=== PATIENT | female | born 1960 | race Caucasian/White ===

== ENCOUNTER 2022-01-02 11:55 | Outpatient (REF) | payer BC, SELFPAY ==
[2022-01-02 13:41] LABS: Blood Urea Nitrogen 9 mg/dL (9-16); Estimated Glomerular Filt Rate > 60
== END 2022-01-02 11:56 | disposition home or self-care (01) ==
LOC: HO.LAB 11:55
PROVIDERS: PCP Internal Medicine; Visit Provider Neurological Surgery
DX: I72.9 Aneurysm of unspecified site (principal)
CPT/HCPCS: 36415; 82565; 84520

== ENCOUNTER 2022-01-06 09:57 | Outpatient (REF) | payer BC, SELFPAY ==
--- NOTE | ~2022-01-06 | XR_ITS ---
EXAMINATION: XR CHEST CLINICAL INFORMATION: Shortness of breath and cough. COMPARISON: Previous chest x-ray most recent October 2018 and abdominal MRI August 2007. TECHNIQUE: 2 views of the chest were obtained. FINDINGS: The heart does not appear enlarged. There is change in contour of the posterior mediastinal structures, either the descending thoracic aorta or esophagus. Hilar and mediastinal contours are otherwise unremarkable. The lungs are clear. There is no pleural effusion or pneumothorax. There are degenerative changes of the spine. XR/XR chest 2V IMPRESSION: Change in contour of the mediastinum either corresponding to the descending thoracic aorta or esophagus.
[2022-01-06 10:13] LABS: MANUAL DIFF FLAG NO
[2022-01-06 10:32] LABS: Basophils Percent Auto 0.2 % (0-2); Eosinophils Percent Auto 0.1 % (0-4); Hematocrit 40.6 % (37.0-47.0); Hemoglobin 13.8 g/dl (12.0-16.0); Imm Gran Abs Auto 0.04 X10*3/uL (0.00-0.03); Imm Gran Pct Auto 0.3 % (0.0-0.4); Lymphocytes Absolute Auto 3.2 X10*3/uL (1.2-4.9); Lymphocytes Percent Auto 25.8 % (20-40); Mean Corpuscular Hemoglobin 29.6 pg (27.0-33.0); Mean Corpuscular Volume 86.9 fL (80.0-98.0); Mean Platelet Volume 8.9 fL (9.4-12.3); Monocytes Absolute Auto 1.1 X10*3/uL (0.1-1.2); Monocytes Percent Auto 8.6 % (2-11); Neutrophils Absolute Auto 8.1 x10*3/uL (2.0-8.3); Platelet Count 404 X10*3/uL (160-400); Red Blood Count 4.67 X10*6/uL (4.20-5.50); Red Cell Distribution Width 13.3 % (11.0-16.0); White Blood Count 12.4 X10*3/uL (4.8-10.8)
[2022-01-06 10:40] LABS: D Dimer High Sensitivity 327 NG/ML
[2022-01-06 10:48] LABS: Appearance Urine CLOUDY; Color Urine YELLOW; Glucose Urine UA NEG (NEG); Leukocyte Esterase Urine NEG (NEG); Nitrite Urine NEG (NEG); PH 6.5 (5.0-8.0); UACC Culture Trigger NO; Urine Blood 3+ (NEG); Urine Ketones 40 MG/DL (NEG); Urine Protein 2+ MG/DL (NEG-TRACE)
[2022-01-06 10:57] LABS: Mucus Urine TRACE /LPF; Squamous Epithelial Cell Urine TRACE /LPF
[2022-01-06 11:09] LABS: Alanine Aminotransferase 17 U/L (0-31); Alkaline Phosphatase 117 U/L (39-117); Anion Gap 16 (12-20); Aspartate Amino Transferase 17 U/L (5-31); Bilirubin Total 0.4 mg/dL (0.0-1.0); Blood Urea Nitrogen 13 mg/dL (9-16); C Reactive Protein 9.24 mg/dL (< or = 0.50); Calcium 11.1 mg/dL (8.4-10.2); Carbon Dioxide 22 mmol/L (22-29); Chloride 105 mmol/L (96-108); Estimated Glomerular Filt Rate > 60; Glucose Random 117 mg/dL (60-115); Potassium 3.9 mmol/L (3.3-5.1); Sodium 139 mmol/L (135-145); Total Protein 8.3 g/dL (6.5-8.0)
[2022-01-06 12:32] LABS: Influenza A PCR NEGATIVE (Negative); Influenza B PCR NEGATIVE (Negative); Resp Syncy Virus RNA Qual PCR POSITIVE (Negative); SARS COV2 PCR INHOUSE NEGATIVE (Negative)
== END 2022-01-06 09:58 | disposition home or self-care (01) ==
LOC: HO.XRAY 09:57
PROVIDERS: PCP Internal Medicine; Visit Provider Internal Medicine
DX: R06.02 Shortness of breath (principal); R05.9 Cough, unspecified; Z20.822 Contact with and (suspected) exposure to COVID-19
CPT/HCPCS: 0241U; 36415; 71046; 80053; 81001; 85025; 85379; 86140; 87086

== ENCOUNTER 2022-01-08 09:35 | Outpatient (REF) | payer BC, SELFPAY ==
--- NOTE | ~2022-01-08 | CT_ITS ---
CT ANGIOGRAM BRAIN, HEAD CLINICAL INFORMATION: Follow-up aneurysm. COMPARISON: CTA head 03/10/2019. TECHNIQUE: Test bolus sequences followed by intravenous administration 75 mL of Omnipaque 350 intravenous contrast. Helical imaging was performed in the axial plane from the skull base to the vertex. Delayed postcontrast imaging of the head was also performed. The data was processed at the cytometry technologist workstation for generation of MIP sequences. Three-dimensional volume rendered reformatted images were also generated at an offline 3-D workstation. The degree of stenosis determined by NASCET criteria. This CT examination was performed using dose optimization techniques as appropriate, variously including the following: *Automated exposure control *Adjustment of mA and/or kV according to patient size (this includes techniques or standardized protocols for targeted exams where dose is matched to indication/reason for exam; i.e. extremities or head) *Use of iterative reconstruction technique FINDINGS: There is no pathologic enhancement intracranially. Stable 0.7 cm calcification along the left tentorial leaflet that may reflect focal dural ossification versus a densely calcified meningioma. There is no intracranial hemorrhage, hydrocephalus, extra-axial surface collection, midline shift, or other herniation pattern. Cain to white matter differentiation is diffusely maintained without evidence of an evolved acute territorial infarct. The basilar cisterns are preserved. No significant soft tissue abnormality. No acute osseous abnormality. Large fluid level within the left maxillary sinus, moderate fluid level within the right maxillary sinus, moderate mucosal thickening within the right sphenoid sinus and throughout the ethmoid air cells bilaterally. 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 There are also stable 1.5 mm infundibulum versus aneurysm S of the posterior communicating artery origins bilaterally. No new aneurysms. Atherosclerotic calcification results in a stable moderate stenosis of the intradural right vertebral artery. Atherosclerotic calcification throughout the carotid siphons bilaterally without significant stenosis. 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 There are also stable 1.5 mm infundibulum versus aneurysm S of the posterior communicating artery origins bilaterally. - Atherosclerotic calcification results in a stable moderate stenosis of the intradural right vertebral artery. - Sinus disease with fluid levels that can be correlated for clinical signs of acute sinusitis. - Stable 0.7 cm calcification along the left tentorial leaflet that may reflect focal dural ossification versus a densely calcified meningioma.
[2022-01-08 11:34] LABS: Appearance Urine CLEAR; Color Urine YELLOW; Glucose Urine UA NEG (NEG); Leukocyte Esterase Urine NEG (NEG); Nitrite Urine NEG (NEG); PH 5.5 (5.0-8.0); Specific Gravity - Urine <= 1.005 (1.005-1.025); Urine Blood NEG (NEG); Urine Ketones NEG (NEG); Urine Protein TRACE MG/DL (NEG-TRACE)
[2022-01-08 12:00] LABS: Urine Cytology See Pathology rpt
== END 2022-01-08 09:36 | disposition home or self-care (01) ==
LOC: HO.CT 09:35
PROVIDERS: Absent Provider Internal Medicine; PCP Internal Medicine; Visit Provider Neurological Surgery
DX: I67.1 Cerebral aneurysm, nonruptured (principal); I67.2 Cerebral atherosclerosis; R30.0 Dysuria; R31.9 Hematuria, unspecified
CPT/HCPCS: 70496; 81003; 87086; 88112

== ENCOUNTER 2023-07-30 09:04 | Outpatient (REF) | payer BC, SELFPAY ==
--- NOTE | ~2023-07-30 | XR_ITS ---
EXAMINATION: XR ANKLE, LEFT CLINICAL INFORMATION: Left ankle pain COMPARISON: None available. TECHNIQUE: AP, lateral, and mortise views of the left ankle. FINDINGS: BONES: Bony structures are intact. There is no focal bone destruction or periosteal reaction seen. JOINTS: Alignment of joints is normal. SOFT TISSUE: Soft tissue is normal. No radiopaque foreign body or abnormal air collection is seen. XR/XR ankle LT min 3V IMPRESSION: 1. Normal x-rays of left ankle. No fracture or dislocation or signs of osteomyelitis are found. Some fractures could be difficult to visualize on plain x-rays, especially in the osteopenic and relatively old patients. If there are significant clinical suspicion or symptoms of fracture, further evaluation with CT or MRI scan should be considered.
--- NOTE | ~2023-07-30 | XR_ITS ---
EXAMINATION: XR KNEE, LEFT CLINICAL INFORMATION: Left knee pain COMPARISON: None available. TECHNIQUE: Four views of the left knee. FINDINGS: BONES: Bony structures are intact. There is no focal bone destruction or periosteal reaction seen. JOINTS: Alignment of joints is normal. There is mild asymmetric decrease in medial compartment and lateral compartment left knee joint space. Small osteophyte is seen in the left medial tibial plateau. SOFT TISSUE: Soft tissue is normal. No radiopaque foreign body or abnormal air collection is seen. XR/XR knee LT 4V IMPRESSION: 1. Mild left tibiofemoral joint osteoarthritis is present. 2. No fracture or dislocation or signs of osteomyelitis are found. Some fractures could be difficult to visualize on plain x-rays, especially in the osteopenic and relatively old patients. If there are significant clinical suspicion or symptoms of fracture, further evaluation with CT or MRI scan should be considered.
--- NOTE | ~2023-07-30 | XR_ITS ---
EXAMINATION: XR KNEE, RIGHT CLINICAL INFORMATION: Right knee pain COMPARISON: None available. TECHNIQUE: Four views of the right knee. FINDINGS: BONES: Bony structures are intact. There is no focal bone destruction or periosteal reaction seen. JOINTS: Alignment of joints is normal. There is marked decrease in medial compartment right tibiofemoral joint space. SOFT TISSUE: Right suprapatellar fat pad shows hazy increase in density. No radiopaque foreign body or abnormal air collection is seen. XR/XR knee RT 4V IMPRESSION: 1. Advanced medial compartment right tibiofemoral joint osteoarthritis. 2. Right knee effusion is present. 3. No fracture or dislocation or signs of osteomyelitis are found. Some fractures could be difficult to visualize on plain x-rays, especially in the osteopenic and relatively old patients. If there are significant clinical suspicion or symptoms of fracture, further evaluation with CT or MRI scan should be considered.
[2023-07-30 09:20] LABS: MANUAL DIFF FLAG NO
[2023-07-30 09:41] LABS: Basophils Percent Auto 0.3 % (0-2); Eosinophils Absolute Auto 0.1 X10*3/uL (0.0-0.4); Eosinophils Percent Auto 0.6 % (0-4); Hematocrit 42.5 % (37.0-47.0); Hemoglobin 14.1 g/dl (12.0-16.0); Imm Gran Abs Auto 0.03 X10*3/uL (0.00-0.03); Imm Gran Pct Auto 0.3 % (0.0-0.4); Lymphocytes Absolute Auto 2.3 X10*3/uL (1.2-4.9); Lymphocytes Percent Auto 25.8 % (20-40); Mean Corpuscular HGB Conc 33.2 g/dl (31.0-35.0); Mean Corpuscular Hemoglobin 29.7 pg (27.0-33.0); Mean Corpuscular Volume 89.7 fL (80.0-98.0); Mean Platelet Volume 8.9 fL (9.4-12.3); Monocytes Absolute Auto 0.6 X10*3/uL (0.1-1.2); Platelet Count 342 X10*3/uL (160-400); Red Blood Count 4.74 X10*6/uL (4.20-5.50); Red Cell Distribution Width 13.7 % (11.0-16.0)
[2023-07-30 10:14] LABS: Alanine Aminotransferase 22 U/L (0-31); Albumin Level 4.9 g/dL (3.5-5.0); Alkaline Phosphatase 88 U/L (39-117); Anion Gap 16 (12-20); Aspartate Amino Transferase 19 U/L (5-31); Bilirubin Total 0.4 mg/dL (0.0-1.0); Blood Urea Nitrogen 15 mg/dL (9-16); Calcium 10.3 mg/dL (8.4-10.2); Carbon Dioxide 23 mmol/L (22-29); Chloride 104 mmol/L (96-108); Cholesterol 345 mg/dL (<200); Estimated Glomerular Filt Rate > 60; Glucose Fasting 111 mg/dL (60-99); HDL Cholesterol 49 mg/dL (>40); LDL Cholesterol Calculated 221 mg/dL (<100); Potassium 4.3 mmol/L (3.3-5.1); Sodium 139 mmol/L (135-145); Total Protein 8.1 g/dL (6.5-8.0); Triglycerides 378 mg/dL (<150)
== END 2023-07-30 09:05 | disposition home or self-care (01) ==
LOC: HO.LAB 09:04
PROVIDERS: PCP Internal Medicine; Visit Provider Internal Medicine
DX: E78.00 Pure hypercholesterolemia, unspecified (principal); M25.562 Pain in left knee; M25.561 Pain in right knee; M25.572 Pain in left ankle and joints of left foot
CPT/HCPCS: 36415; 73564; 73610; 80053; 80061; 85025

== ENCOUNTER 2024-03-16 12:56 | Outpatient (REF) | payer BC, SELFPAY ==
--- NOTE | ~2024-03-16 | XR_ITS ---
EXAMINATION: XR CERVICAL SPINE CLINICAL INFORMATION: Neck pain COMPARISON: None available. TECHNIQUE: 6 views of the cervical spine, including bilateral oblique views, were obtained. FINDINGS: The bones are diffusely demineralized. No fracture. Prevertebral soft tissues are within normal limits. There is marked disc space narrowing at C5-C6 and C6-C7 with marginal osteophytes. There is mild retrolisthesis of C5 with respect to C6. There is straightening of the usual cervical lordosis which can be seen with muscle spasm or patient positioning. The neural foramina are patent. XR/XR cervical spine 5V IMPRESSION: 1. Degenerative disc disease at C5-C6 and C6-C7. 2. Straightening of the usual cervical lordosis which can be seen with muscle spasm or patient positioning.
--- NOTE | ~2024-03-16 | XR_ITS ---
EXAMINATION: XR CHEST CLINICAL INFORMATION: Neck pain COMPARISON: Chest 01/06/2022 TECHNIQUE: 2 views of the chest were obtained. FINDINGS: No significant abnormality is noted involving the heart, lungs, mediastinum, bony thorax or soft tissues. A small to moderate size hernia is noted. XR/XR chest 2V IMPRESSION: No acute disease.
[2024-03-16 13:09] LABS: MANUAL DIFF FLAG NO
[2024-03-16 14:01] LABS: Basophils Percent Auto 0.4 % (0-2); Eosinophils Absolute Auto 0.1 X10*3/uL (0.0-0.4); Eosinophils Percent Auto 0.9 % (0-4); Hematocrit 40.5 % (37.0-47.0); Hemoglobin 13.3 g/dl (12.0-16.0); Imm Gran Abs Auto 0.01 X10*3/uL (0.00-0.03); Imm Gran Pct Auto 0.1 % (0.0-0.4); Lymphocytes Absolute Auto 3.2 X10*3/uL (1.2-4.9); Lymphocytes Percent Auto 41.8 % (20-40); Mean Corpuscular HGB Conc 32.8 g/dl (31.0-35.0); Mean Corpuscular Hemoglobin 30.3 pg (27.0-33.0); Mean Corpuscular Volume 92.3 fL (80.0-98.0); Monocytes Absolute Auto 0.6 X10*3/uL (0.1-1.2); Monocytes Percent Auto 8.2 % (2-11); Neutrophils Absolute Auto 3.7 x10*3/uL (2.0-8.3); Neutrophils Percent Auto 48.6 % (45-73); Platelet Count 351 X10*3/uL (160-400); Red Blood Count 4.39 X10*6/uL (4.20-5.50); Red Cell Distribution Width 14.1 % (11.0-16.0); White Blood Count 7.7 X10*3/uL (4.8-10.8)
[2024-03-16 15:09] LABS: Alanine Aminotransferase 21 U/L (0-31); Albumin Level 4.9 g/dL (3.5-5.0); Alkaline Phosphatase 91 U/L (39-117); Anion Gap 12 (12-20); Aspartate Amino Transferase 22 U/L (5-31); Bilirubin Total 0.5 mg/dL (0.0-1.0); Blood Urea Nitrogen 10 mg/dL (9-16); C Reactive Protein 0.24 mg/dL (< or = 0.50); Calcium 10.5 mg/dL (8.4-10.2); Carbon Dioxide 28 mmol/L (22-29); Chloride 107 mmol/L (96-108); Estimated Glomerular Filt Rate > 60; Glucose Random 92 mg/dL (60-115); Potassium 4.4 mmol/L (3.3-5.1); Sodium 143 mmol/L (135-145)
== END 2024-03-16 12:57 | disposition home or self-care (01) ==
LOC: HO.LAB 12:56
PROVIDERS: PCP Internal Medicine; Visit Provider Internal Medicine
DX: M54.9 Dorsalgia, unspecified (principal); Z87.891 Personal history of nicotine dependence; R52 Pain, unspecified
CPT/HCPCS: 36415; 71046; 72050; 80053; 82550; 85025; 86140

== ENCOUNTER 2025-03-16 14:49 | Outpatient (AMB) | payer BC, SELFPAY ==
--- OUTSIDE RECORDS SUMMARY | 2025-03-16 14:51 | XMS_ITS | Clinical Summary ---
Author Organization [facility] it Address [id number] [place] [id number] Care Team Providers Care Field Tech Name Role Phone Nick White MD Primary Care Provider [phone] Social History Tobacco Use Types Packs/Day Years Used Date Smoking Tobacco: Never Assessed Comments Unknown Sex and Gender Information Value Date Recorded Sex Assigned at Not on file Legal Sex Female 7:21 AM EST Gender Identity Not on file Sexual Orientation Not on file Plan of Treatment Health Maintenance Due Date Last Done Comments Breast Cancer Screening 1960 DTaP,Tdap,and Td Vaccines (1 - Tdap) 1978 Pneumococcal Vaccine: 50+ Ye ars (1 of 1 - PCV) 2009 Zoster Vaccines (1 of 2) 2009 COVID-19 Vaccine ( - 2023-2 5 season) 2024 Influenza Vaccine (Season Ended) 2025 RSV Immunization Adult Patie nts (1 - 1-dose 75+ series) 2034 HIB Vaccines Aged Out No longer eligi ble based on patient's age to complete this topic HPV Vaccines Aged Out No longer eligi ble based on patient's age to complete this topic Hepatitis A Vaccines Aged Out No long er eligible based on patient's age to complete this topic Hepatitis B Vaccines Aged Out No long er eligible based on patient's age to complete this topic IPV Vaccines Aged Out No longer eligi ble based on patient's age to complete this topic MMR Vaccines Aged Out No longer eligi ble based on patient's age to complete this topic Meningococcal ACWY Vaccine Aged Out N o longer eligible based on patient's age to complete this topic Meningococcal B Vaccine Aged Out No l onger eligible based on patient's age to complete this topic RSV Immunization Patients Un chano 20 months Aged Out No longer eligible b ased on patient's age to complete this topic Varicella Vaccines Aged Out No longer eligible based on patient's age to complete this topic Care Teams Field Tech Relationship Specialty Start Date End Date Nick White MD [address] [place] [address] Dr Urbano MA PCP - General Internal Medicine 01/16/22
--- NOTE | 2025-03-16 14:57 | MHC.PC.OV ---
Vital Signs 03/16/25 15:16 Height 5 ft 3 in Weight 148 lb BMI 26.2 BP 128/72 Blood Pressure Location Rt brachial Position Sitting Pulse 71 Pulse Source Pulse Oximeter Temp 97.5 F Temp Source Axillary Pulse Oximetry (%) 98 Oxygen Delivery Method Room Air Intake Visit Reasons: Routine - see comments Production Sound Mixer Required: No Accompanied by: Self / Same As Patient Allergies codeine [Codeine] Allergy (Mild, Verified 03/16/25 14:58) HIVES diphenhydramine [From Benadryl] Allergy (Mild, Verified 03/16/25 14:58) HIVES Tobacco use date assessed: 03/16/25 Fall risk assessment: 1 Fall in past year Last assessed Fall Risk: 03/16/25 Dental Screening Dental Screen Date: 03/16/25 Did you have a dental visit in the last 12 months?: No Did you have a dental problem in the last 6 months where you did not have access to dental care?: No HPI HPI Comments History of Present Illness Details The patient is a 65 year old female with a past medical history of anxiety, MDD, hyperlipidemia, COPD, hypertension, right knee pain presenting for follow up CV: on atorvastatin daily BH: on celexa 20mg daily. She has been out of the medication for a couple weeks. She has been on this medication for years. Says it is not adequately controlling her depression anymore. Frequently tearful for no reason/ford. She has no thoughts of self harm. Mammo: ordered Colonoscopy: declines colonoscopy. she is agreeable for cologuard ROS see HPI PHYSICAL EXAM: GENERAL: Alert and oriented x 3. NAD EYES: EOMI. Anicteric. HENT: Moist mucous membranes. No scleral icterus. No cervical lymphadenopathy. LUNGS: Clear to auscultation bilaterally. CARDIOVASCULAR: Regular rate and rhythm. No murmur. No JVD. ABDOMEN: Soft, non-tender +bs EXTREMITIES: No edema. Non-tender. SKIN: No rashes or lesions. Warm. NEUROLOGIC: No focal neurological deficits. CN II-XII grossly intact PSYCHIATRIC: Cooperative. Appropriate mood and affect [facility] Family History Mother No problems noted. Father No problems noted. Social History Housing: House Patient Tobacco Use Status: Former Tobacco user e-Cigarette/Vaping Use: Former Use service: No Current occupational status: retired Cognitive needs: No Hearing needs: No Vision needs: Yes (rx glasses) Questionnaire PHQ-9 Over the last 2 weeks, how often have you been bothered by any of the following problems? 1. Little interest or pleasure in doing things: not at all 2. Feeling down, depressed, or hopeless: nearly every day 3. Trouble falling or staying asleep, or sleeping too much: nearly every day 4. Feeling tired or having little energy: several days 5. Poor appetite or overeating: several days 6. Feeling bad about yourself - or that you are a failure or have let yourself or your family down: not at all 7. Trouble concentrating on things, such as reading the newspaper or watching television: not at all 8. Moving or speaking so slowly that other people could have noticed. Or the opposite - being so fidgety or restless that you have been moving around a lot more than usual: not at all 9. Thoughts that you would be better off or of hurting yourself in some way: not at all Total score: 8 Depression Screening Interpretation: Positive Depression Screening Follow-up: New Medication prescribed Depression Screening Done: Yes 48581 - PHQ-9 Billing: Yes Source: Developed by Drs. Liborio Hahn, Raquel Bowers, Bradley Griffith and colleagues, with an educational radha from [employer]. Thrive Questionnaire Date Thrive assessed: 03/16/25 I am a: Patient Within the past 12 months, did the food you bought not last and you didn't have the money to get more?: Never true Within the past 12 months, did you worry whether your food would run out before you got money to buy more?: Never true Do you have trouble paying for medicines?: No Do you have trouble getting transportation to medical appointments?: No Do you have trouble paying your heating and electricity bill?: No Do you have trouble taking care of your child, family member or friend?: No Do you have trouble with day-to-day activities such as bathing, preparing meals, shopping, managing finances, etc.?: No Are you currently unemployed and looking for a job?: No Are you interested in more education?: No THRIVE Score: 0 AUDIT C Alcohol Use Questionnaire (AUDIT-C) 1. How often do you have a drink containing alcohol?: Never 3. How often do you have six or more drinks on one occasion?: Never Total Score: 0 LUNA-7 AMB Questionnaire LUNA-7 Date LUNA - 7 assessed: 03/16/25 Feeling nervous, anxious, or on edge: 3 = Nearly every day Not being able to stop or control worryin = Not at all Worrying too much about different things: 0 = Not at all Trouble relaxin = Not at all Being so restless that it is hard to sit still: 0 = Not at all Becoming easily annoyed or irritable: 0 = Not at all Feeling afraid as if something awful might happen: 0 = Not at all Total LUNA-7 score (0-4 normal; 5-9 mild; 10-14 moderate; 15-21 severe): 3 Source: Developed by Drs. Liborio Hahn, Raquel Bowers, Bradley Griffith and colleagues, with an educational radha from [employer]. Physical exam (Primary Care) Vital Signs: Last Vital Signs Temp 97.5 F 03/16/25 15:16 Pulse 71 03/16/25 15:16 BP 128/72 03/16/25 15:16 Pulse Ox 98 03/16/25 15:16 Oxygen Delivery Method Room Air 03/16/25 15:16 BMI result Body Mass Index 26.2 Tobacco/Smoking Status: Tobacco use Status Tobacco use date assessed 03/16/25 03/16/25 15:00 Patient Tobacco Use Status Former Tobacco user 03/16/25 15:22 e-Cigarette/Vaping Use Former Use 03/16/25 15:22 PHQ-9: PHQ-9 Score PHQ-9: Total score 8 03/18/25 12:37 Depression Screening Interpretation: Positive Depression Screening Follow-up: New Medication prescribed Thrive Assessment: Date of Thrive Assessment Date Thrive assessed 03/16/25 03/16/25 15:00 Coding Level of Care Code New Pt Level 4 (51596) Complex EM visit Add On G2211 Diagnoses Hyperlipidemia, unspecified hyperlipidemia type E78.5 Hyperlipidemia type: unspecified Elevated glucose R73.09 Anxiety F41.9 Moderate episode of recurrent major depressive disorder F33.1 Active/Remission status: currently active Depression Type: major depressive disorder Major depression episode severity: moderate Major depression recurrence: recurrent Additional Codes PHQ-9 - 32234 - PHQ-9 Billing: Yes ([id number]) Assessment & Plan Assessment & Plan (1) Hyperlipemia: Code(s): E78.5 - Hyperlipidemia, unspecified Category: Medical Qualifiers: Hyperlipidemia type: unspecified Qualified Code(s): E78.5 - Hyperlipidemia, unspecified (2) Elevated glucose: Code(s): R73.09 - Other abnormal glucose Category: Medical (3) Anxiety: Code(s): F41.9 - Anxiety disorder, unspecified Category: Medical (4) Depression: Code(s): F32.A - Depression, unspecified Category: Medical Qualifiers: Active/Remission status: currently active Depression Type: major depressive disorder Major depression episode severity: moderate Major depression recurrence: recurrent Qualified Code(s): F33.1 - Major depressive disorder, recurrent, moderate Plan 65 year old female presenting to [facility] care past medical, surgical, social reviewed Check lipids on atorvastatin Depression. Already stopped celexa. Start sertraline 12.5 x one week then increase to 25mg daily Orders: Orders Complete Blood Count Auto Diff 03/16/25 E78.5 - Hyperlipidemia, unspecified, F32.A - Depression, unspecified, F41.9 - Anxiety disorder, unspecified, R73.09 - Other abnormal glucose, Z13.0 - Encounter for screening for diseases of the blood and blood-forming organs and certain disorders involving the immune mechanism, Z13.228 - Encounter for screening for other metabolic disorders Comprehensive Met. Panel 03/16/25 E78.5 - Hyperlipidemia, unspecified, F32.A - Depression, unspecified, F41.9 - Anxiety disorder, unspecified, R73.09 - Other abnormal glucose, Z13.0 - Encounter for screening for diseases of the blood and blood-forming organs and certain disorders involving the immune mechanism, Z13.228 - Encounter for screening for other metabolic disorders Lipid Panel 03/16/25 E78.5 - Hyperlipidemia, unspecified, F32.A - Depression, unspecified, F41.9 - Anxiety disorder, unspecified, R73.09 - Other abnormal glucose, Z13.0 - Encounter for screening for diseases of the blood and blood-forming organs and certain disorders involving the immune mechanism, Z13.228 - Encounter for screening for other metabolic disorders TSH reflex Free T4 03/16/25 E78.5 - Hyperlipidemia, unspecified, F32.A - Depression, unspecified, F41.9 - Anxiety disorder, unspecified, R73.09 - Other abnormal glucose, Z13.0 - Encounter for screening for diseases of the blood and blood-forming organs and certain disorders involving the immune mechanism, Z13.228 - Encounter for screening for other metabolic disorders Vitamin D 25-OH (D2 and D3) 03/16/25 E78.5 - Hyperlipidemia, unspecified, F32.A - Depression, unspecified, F41.9 - Anxiety disorder, unspecified, R73.09 - Other abnormal glucose, Z13.0 - Encounter for screening for diseases of the blood and blood-forming organs and certain disorders involving the immune mechanism, Z13.228 - Encounter for screening for other metabolic disorders Vitamin B12 and Folate 03/16/25 F32.A - Depression, unspecified MM screening mammo BI 03/16/25 Z12.31 - Encounter for screening mammogram for malignant neoplasm of breast Hemoglobin A1c 03/16/25 E78.5 - Hyperlipidemia, unspecified, F32.A - Depression, unspecified, F41.9 - Anxiety disorder, unspecified, R73.09 - Other abnormal glucose, Z13.0 - Encounter for screening for diseases of the blood and blood-forming organs and certain disorders involving the immune mechanism, Z13.228 - Encounter for screening for other metabolic disorders Parathyroid Hormone Intact 03/16/25 E78.5 - Hyperlipidemia, unspecified, F32.A - Depression, unspecified, F41.9 - Anxiety disorder, unspecified, R73.09 - Other abnormal glucose, Z13.0 - Encounter for screening for diseases of the blood and blood-forming organs and certain disorders involving the immune mechanism, Z13.228 - Encounter for screening for other metabolic disorders Referrals Cologuard Test Z12.11 - Encounter for screening for malignant neoplasm of colon, Z12.12 - Encounter for screening for malignant neoplasm of rectum Medications: New sertraline Take one half tablet oral for one week then increase to one tablet oral daily. 25 mg PO DAILY 90 tabs 1RF atorvastatin 20 mg PO DAILY 90 tabs 3RF
[2025-03-16 15:16] VITALS: BP 128/72; PULSE 71; TEMP 36.4; O2SAT 98; BMI 26.2
== END 2025-03-16 15:39 | disposition home or self-care (01) ==
LOC: HO.HMCHD 14:50
PROVIDERS: PCP Internal Medicine; Visit Provider Internal Medicine
DX: E78.5 Hyperlipidemia, unspecified (principal); R73.09 Other abnormal glucose; F41.9 Anxiety disorder, unspecified; F33.1 Major depressive disorder, recurrent, moderate

== ENCOUNTER → 2025-03-16 14:49 | Outpatient (BNVA) | payer BC, SELFPAY | PROVIDERS: PCP Internal Medicine; Visit Provider Internal Medicine | DX: E78.5 Hyperlipidemia, unspecified (principal); R73.09 Other abnormal glucose; F41.9 Anxiety disorder, unspecified; F33.1 Major depressive disorder, recurrent, moderate | CPT/HCPCS: 96127 ==

== ENCOUNTER 2025-06-08 16:00 | Outpatient (AMB) | payer BC, SELFPAY ==
--- NOTE | 2025-06-08 16:05 | MHC.PC.OV ---
Vital Signs 06/08/25 16:09 Height 5 ft 3 in Weight 65.771 kg BMI 25.7 BP 144/90 H Pulse 98 Pulse Source Pulse Oximeter Temp 97.5 F Temp Source Temporal Artery Scan Pulse Oximetry (%) 99 Oxygen Delivery Method Room Air Intake Visit Reasons: f/u Ammonium Nitrate Crystallizer Required: No Accompanied by: Self / Same As Patient Allergies codeine (Codeine) Allergy (Mild, Verified 06/08/25 16:05) HIVES Medication List - Last Reconciled 06/08/25 by ENIO Arredondo atorvastatin 20 mg PO DAILY fluticasone propionate 50 mcg/actuation 2 sprays intranasal DAILY sertraline 25 mg PO DAILY Tobacco use date assessed: 03/16/25 Dental Screening Dental Screen Date: 03/16/25 HPI HPI Comments History of Present Illness Details The patient is a 65 year old female with a past medical history of anxiety, MDD, hyperlipidemia, COPD, hypertension, right knee pain presenting for follow up CV: on atorvastatin daily BH: pamela mcnamara'bia last visit. Imprvoed with sertraline. COPD: Not on inhalers, no recent exacerbation Hypertension: Borderline Concerns: Chronic right knee pain-ongoing for years, no injury known. Reports pain is constant worse when walking. Does feel unstable and ambulates with a cane as a result. Requesting handicap se. X-ray reviewed from 2022 showing advanced medial compartment tibiofemoral osteoarthritis. Using Tylenol PRN Left ankle pain-ongoing for several months. No injury known. Reports swelling of the ankle extending into the foot. Pain is constant but waxes and wanes in severity. She describes a sharp twisting pain intermittently that will cause her to stop walking. Pain is worse with ambulation. Mammo: ordered Cologuard ordered ROS: See HPI EXAM: Constitutional - Awake and Alert, No apparent distress Eyes - PERRL Cardiovascular - S1S2, RRR, No edema Respiratory - Normal lung expansion, Normal respiratory effort, No respiratory distress, CTA bilaterally Extremities - no calf tenderness bilaterally, no swelling MSK-right knee-mild swelling, no effusion. No erythema or warmth. Full extension and flexion. Tenderness to palpation over the medial aspect of the knee. Left ankle-tenderness to palpation over the inferior aspect of the lateral malleolus with mild swelling but no effusion, erythema, warmth. Full range of motion of the ankle. Skin - Warm/Dry Neurological - Alert & oriented x3. 5/5 strength of the bilateral lower extremities Psychological - Appropriate affect [facility] Medical History (Updated 06/08/25 @ 16:37 by ENIO Arredondo) Osteoarthritis of right knee Family History Mother No problems noted. Father No problems noted. Social History Housing: House Patient Tobacco Use Status: Former Tobacco user e-Cigarette/Vaping Use: Former Use service: No Current occupational status: retired Cognitive needs: No Hearing needs: No Vision needs: Yes (rx glasses) Questionnaire Thrive Questionnaire Date Thrive assessed: 03/16/25 LUNA-7 AMB Questionnaire LUNA-7 Date LUNA - 7 assessed: 03/16/25 Source: Developed by Drs. Liborio Hahn, Raquel Bowers, Bradley Griffith and colleagues, with an educational radha from [employer]. Physical exam (Primary Care) Vital Signs: Last Vital Signs Temp 97.5 F 06/08/25 16:09 Pulse 98 06/08/25 16:09 BP 144/90 H 06/08/25 16:09 Pulse Ox 99 06/08/25 16:09 Oxygen Delivery Method Room Air 06/08/25 16:09 BMI result Body Mass Index 25.7 Tobacco/Smoking Status: Tobacco use Status Tobacco use date assessed 03/16/25 06/08/25 16:07 Patient Tobacco Use Status Former Tobacco user 06/08/25 16:07 e-Cigarette/Vaping Use Former Use 06/08/25 16:07 Thrive Assessment: Date of Thrive Assessment Date Thrive assessed 03/16/25 06/08/25 16:07 Coding Level of Care Code New Pt Level 4 (46632) Complex EM visit Add On G2211 Diagnoses Moderate episode of recurrent major depressive disorder F33.1 Depression Type: major depressive disorder Major depression recurrence: recurrent Active/Remission status: currently active Major depression episode severity: moderate Hyperlipidemia, unspecified hyperlipidemia type E78.5 Hyperlipidemia type: unspecified Osteoarthritis of right knee M17.11 Right ankle pain M25.571 Assessment & Plan Assessment & Plan (1) Depression: Code(s): F32.A - Depression, unspecified Category: Medical Qualifiers: Depression Type: major depressive disorder Major depression recurrence: recurrent Active/Remission status: currently active Major depression episode severity: moderate Qualified Code(s): F33.1 - Major depressive disorder, recurrent, moderate Plan: Stable. Continue sertraline 25 mg daily (2) Hyperlipemia: Code(s): E78.5 - Hyperlipidemia, unspecified Category: Medical Qualifiers: Hyperlipidemia type: unspecified Qualified Code(s): E78.5 - Hyperlipidemia, unspecified Plan: Lipid panel pending. Continue atorvastatin (3) Osteoarthritis of right knee: Code(s): M17.11 - Unilateral primary osteoarthritis, right knee Category: Medical Plan: X-ray of the right knee ordered. Referred to Orthopedic surgery. Can take ibuprofen or Tylenol as needed for pain. Recommend ice and rest as well as gentle wnwgl-gj-rtooao exercises (4) Right ankle pain: Code(s): M25.571 - Pain in right ankle and joints of right foot Category: Medical Plan: X-ray of the right ankle ordered. Refer to Podiatry. Pain management as above Plan Follow-up in the office in 4 months. Labs to be completed following visit today Orders: Orders XR ankle LT 2V Today M25.571 - Pain in right ankle and joints of right foot XR knee RT 3V Today M17.11 - Unilateral primary osteoarthritis, right knee Referrals Orthopedics Referral E78.5 - Hyperlipidemia, unspecified, F33.1 - Major depressive disorder, recurrent, moderate, M17.11 - Unilateral primary osteoarthritis, right knee, M25.571 - Pain in right ankle and joints of right foot Podiatry Referral M77.52 - Other enthesopathy of left foot and ankle Medications: Changed From fluticasone propionate 50 mcg/actuation intranasal To fluticasone propionate 50 mcg/actuation 2 sprays intranasal DAILY 16 grams 5RF
[2025-06-08 16:09] VITALS: BP 144/90; PULSE 98; TEMP 36.4; O2SAT 99; BMI 25.7
== END 2025-06-08 16:44 | disposition home or self-care (01) ==
LOC: HO.HMCHD 16:01
PROVIDERS: PCP Internal Medicine; Visit Provider Physician Assistant
DX: F33.1 Major depressive disorder, recurrent, moderate (principal); E78.5 Hyperlipidemia, unspecified; M17.11 Unilateral primary osteoarthritis, right knee; M25.571 Pain in right ankle and joints of right foot

== ENCOUNTER 2025-06-12 07:40 | Outpatient (REF) | payer BC, SELFPAY ==
--- NOTE | ~2025-06-12 | XR_ITS ---
CLINICAL HISTORY: M25.571 - Pain in right ankle and joints of right foot Radiographs of the left ankle, 3 views, 4 images Comparison: None available Findings: There is no fracture or dislocation. The ankle mortise is congruent. Cynm-lh-hifgmffo degenerative change. Soft tissue swelling. Impression: No fracture. This document has been electronically signed by: Francie Fontaine MD on 06/13/2025 14:01:03
--- NOTE | ~2025-06-12 | XR_ITS ---
CLINICAL HISTORY: M17.11 - Unilateral primary osteoarthritis, right knee Radiographs of the right knee, 3 views Comparison: None available Findings: There is no fracture or dislocation. Moderate medial tibiofemoral compartment joint space narrowing with mild osteophytosis. Trace suprapatellar enthesophyte. No knee joint effusion. No soft tissue swelling. Impression: No acute findings. Moderate degenerative change in the medial tibiofemoral compartment. This document has been electronically signed by: Francie Fontaine MD on 06/13/2025 13:56:15
[2025-06-12 08:09] LABS: MANUAL DIFF FLAG NO
[2025-06-12 08:47] LABS: Hematocrit 39.5 % (37.0-47.0); Hemoglobin 13.0 g/dl (12.0-16.0); Imm Gran Abs Auto 0.02 X10*3/uL (0.00-0.03); Imm Gran Pct Auto 0.3 % (0.0-0.4); Lymphocytes Absolute Auto 2.5 X10*3/uL (1.2-4.9); Mean Corpuscular HGB Conc 32.9 g/dl (31.0-35.0); Mean Corpuscular Hemoglobin 30.4 pg (27.0-33.0); Mean Corpuscular Volume 92.3 fL (80.0-98.0); NRBC Abs Auto 0.000 X10*3/uL (0.0-0.012); NRBC Pct Auto 0.0 /100WBC (0.0-0.2); Platelet Count 322 X10*3/uL (160-400); Red Blood Count 4.28 X10*6/uL (4.20-5.50); White Blood Count 6.7 X10*3/uL (4.8-10.8)
[2025-06-12 08:54] LABS: Hemoglobin A1C 127.8333 umol/L; Total Hemoglobin (HGBA1C) 3437.0163 umol/L
[2025-06-12 09:26] LABS: Alanine Aminotransferase 27 U/L (0-31); Albumin Level 5.0 g/dL (3.5-5.0); Alkaline Phosphatase 83 U/L (39-117); Anion Gap 15 (12-20); Aspartate Amino Transferase 26 U/L (5-31); Blood Urea Nitrogen 12 mg/dL (9-16); Calcium 9.7 mg/dL (8.4-10.2); Carbon Dioxide 28 mmol/L (22-29); Chloride 106 mmol/L (96-108); Cholesterol 264 mg/dL (<200); Estimated Glomerular Filt Rate > 60; HDL Cholesterol 43 mg/dL (>40); Potassium 4.7 mmol/L (3.3-5.1); Sodium 144 mmol/L (135-145); Total Protein 7.7 g/dL (6.5-8.0); Triglycerides 369 mg/dL (<150)
[2025-06-12 09:50] LABS: Folate 16.5 ng/mL (> or = 4.0); Vitamin B12 509 pg/mL (200-900)
[2025-06-12 09:56] LABS: Parathyroid Hormone Intact 42.2 pg/mL (8.7-77.1)
[2025-06-16 15:24] LABS: Vitamin D 25-OH, D2 <4 ng/mL; Vitamin D 25-OH, D3 36 ng/mL; Vitamin D 25-OH, Total 36 ng/mL (30-100)
== END 2025-06-12 07:41 | disposition home or self-care (01) ==
LOC: HO.LAB 07:40
PROVIDERS: Absent Provider Physician Assistant; Visit Provider Internal Medicine
DX: M17.11 Unilateral primary osteoarthritis, right knee (principal); M25.571 Pain in right ankle and joints of right foot; F41.8 Other specified anxiety disorders; R73.09 Other abnormal glucose; E78.5 Hyperlipidemia, unspecified; Z13.228 Encounter for screening for other metabolic disorders; Z13.0 Encounter for screening for diseases of the blood and blood-forming organs and certain disorders involving the immune mechanism
CPT/HCPCS: 36415; 73562; 73610; 80053; 80061; 82306; 82607; 82746; 83036; 83970; 84443; 85025

== ENCOUNTER → 2025-06-12 08:10 | Outpatient (BNV) | payer BC, SELFPAY | PROVIDERS: Absent Provider Physician Assistant; Visit Provider Radiology Diagnostic Radiology | DX: M17.11 Unilateral primary osteoarthritis, right knee (principal); M25.571 Pain in right ankle and joints of right foot | CPT/HCPCS: 73562; 73610 ==

== ENCOUNTER 2025-06-25 13:47 | Outpatient (AMB) | payer BC, SELFPAY ==
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
[2025-06-25 13:53] VITALS: BMI 25.9
--- OUTSIDE RECORDS SUMMARY | 2025-06-25 19:04 | XMS_ITS | Clinical Summary ---
Author Organization [facility] it Address [id number] [place] [phone] Care Team Providers Care Coat Check Attendant Name Role Phone Nick White MD Primary Care Provider Social History Tobacco Use Types Packs/Day Years [...] 2009 Zoster Vaccines (1 of 2) 2009 Depression Screening 10/11/2024 COVID-19 Vaccine (1 - 2023-2 5 season) 2025 Influenza Vaccine (#1) 2025 RSV Immunization Adult Patie nts (1 [...] age to complete this topic Care Teams Coat Check Attendant Relationship Specialty Start Date End Date Nick White MD [address] [place] [address] Dr Urbano MA PCP - General Internal Medicine 01/16/22
== END 2025-06-25 14:21 | disposition home or self-care (01) ==
LOC: HO.HPODS 13:47
PROVIDERS: PCP Internal Medicine; Visit Provider Student in an Organized Health Care Education/Training Program
DX: M25.572 Pain in left ankle and joints of left foot (principal); G89.29 Other chronic pain; M19.072 Primary osteoarthritis, left ankle and foot; M25.373 Other instability, unspecified ankle; S93.492A Sprain of other ligament of left ankle, initial encounter
CPT/HCPCS: 99204

== ENCOUNTER 2025-07-16 13:40 | Outpatient (AMB) | payer BC, SELFPAY ==
--- NOTE | 2025-07-16 13:49 | A.OFFVIS_ITS ---
Vital Signs 07/16/25 13:55 Height 5 ft 3 in Weight 146 lb BMI 25.9 Intake Visit Reasons: 3 week- MRI follow up Intake Note: July is a 65 year old female who presents today for a follow up on her left ankle arthritis. She was seen on 06/25/25 where she was prescribed meloxicam and provided a lace up ankle brace. Pt reports the prescription hasn't done anything to relieve her symptoms however the brace has helped her alot. She mentions the past couple days she has not experienced any pain. Allergies codeine (Codeine) Allergy (Mild, Verified 07/16/25 13:55) HIVES HPI Comments Details: The patient is a 65-year-old female presenting for follow-up of left ankle pain. The ankle pain has continued to improve significantly, and the patient reports that the use of the lace-up brace has provided relief, although medications such as meloxicam had not been effective. Patient states she finds relief with Tylenol Arthritis. The patient has been engaging in regular activity, including walking up and down stairs, but has been consistently wearing the brace,which she believes contributes to the improvement of her symptoms. The patient also experiences arthritic pain, which she notes worsens with weather changes, particularly when it rains or becomes colder. She recalls similar symptoms from her younger years and associates them with increased activity, such as doing laundry. 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 She denies any other pedal concerns. Denies any nausea, vomiting, fever, or chills. [facility] Medical History (Updated 06/25/25 @ 14:28 by Shanell Mathias DPM) Left ankle sprain Chronic instability of ankle Arthritis of left ankle Left ankle pain Osteoarthritis of right knee Family History Mother No problems noted. Father No problems noted. Social History Housing: House Patient Tobacco Use Status: Former Tobacco user e-Cigarette/Vaping Use: Former Use service: No Current occupational status: retired Cognitive needs: No Hearing needs: No Vision needs: Yes (rx glasses) Review of Systems Const Details: - Musculoskeletal: Reports improvement in left ankle pain, instability, and difficulty walking. - Neurological: Denies numbness or tingling in the feet. All systems reviewed & are unremarkable except as noted in HPI and below Physical Exam Vital Signs: BMI result Body Mass Index 25.9 Extrem Other: Left lower extremity focused physical exam: Derm: No open lesions abrasions or wounds noted. Skin supple and within normal limits. No ecchymosis noted. No clinical signs of infection. Vascular: DP/PT pulses palpable. Capillary refill time less than 3 seconds. Temperature gradient warm to warm. Mild edema noted. Pedal hair absent. Minimal varicosities noted. Neuro: Protective sensation is grossly intact. MSK: No pain on palpation to the lateral aspect of the ankle along the area of the lateral malleolus and ATFL. No pain on palpation to the medial aspect of the ankle. Range of motion of the ankle slightly improved from last visit. Negative anterior drawer. Crepitus noted with ankle ROM. Mildly antalgic gait noted with the use of a cane. Range of motion of the forefoot within normal limits. No pain on palpation to the Achilles tendon. No pain on palpation to the plantar aspect of the foot. Results Reviewed Results Reviewed: Podiatry read of Left ankle x-rays (06/13/2025): Mild osteophytic changes noted to the ankle with mild joint space narrowing noted. Mild posterior calcaneal spurring noted. Minimal osteophytic changes noted to the dorsum of the midfoot. No acute fractures or dislocations noted. Left ankle x-rays (06/13/2025): Findings: There is no fracture or dislocation. The ankle mortise is congruent. Nzip-ss-bsnlhony degenerative change. Soft tissue swelling. Impression: No fracture. Assessment & Plan Assessment & Plan (1) Left ankle pain: Code(s): M25.572 - Pain in left ankle and joints of left foot Category: Medical Qualifiers: Chronicity: chronic Qualified Code(s): M25.572 - Pain in left ankle and joints of left foot; G89.29 - Other chronic pain (2) Chronic instability of ankle: Code(s): M25.373 - Other instability, unspecified ankle Category: Medical (3) Arthritis of left ankle: Code(s): M19.072 - Primary osteoarthritis, left ankle and foot Category: Medical (4) Left ankle tendonitis: Code(s): M77.52 - Other enthesopathy of left foot and ankle Category: Medical (5) Left ankle sprain: Code(s): S93.402A - Sprain of unspecified ligament of left ankle, initial encounter Category: Medical Qualifiers: Encounter type: initial encounter Involved ligament of ankle: anterior talofibular ligament Qualified Code(s): S93.492A - Sprain of other ligament of left ankle, initial encounter Plan Patient was informed and verbally consented to the use of an ambient scribe for clinic note documentation during this visit. I discussed with the patient the management of her left ankle pain, emphasizing the importance of continuing to use the brace and initiating physical therapy as soon as possible. We also talked about how weather changes can affect her arthritic pain and the need to monitor symptoms closely. - Continue using the ankle brace as it provides relief. - Initiate physical therapy to address ankle pain and prevent exacerbation, especially during increased activity periods. PT referral sent. - Continue Tylenol Arthritis prn pain. Advised follow-up in 6 weeks to assess pain levels. Will consider injection and further imaging if pain persists. Consideration of surgical intervention if conservative measures fail. Orders: Orders PT Evaluation and Treatment 07/16/25 G89.29 - Other chronic pain, M19.072 - Primary osteoarthritis, left ankle and foot, M25.373 - Other instability, unspecified ankle, M25.572 - Pain in left ankle and joints of left foot, M77.52 - Other enthesopathy of left foot and ankle, S93.492A - Sprain of other ligament of left ankle, initial encounter Coding Level of Care Code Est Pt Level 4 (38442) Diagnoses Chronic pain of left ankle M25.572; G89.29 Chronicity: chronic Chronic instability of ankle M25.373 Arthritis of left ankle M19.072 Left ankle tendonitis M77.52 Sprain of anterior talofibular ligament of left ankle, initial encounter S93.492A Encounter type: initial encounter Involved ligament of ankle: anterior talofibular ligament Time Spent (min) 40
[2025-07-16 13:55] VITALS: BMI 25.9
--- OUTSIDE RECORDS SUMMARY | 2025-07-16 15:58 | XMS_ITS | Clinical Summary ---
Author Organization [facility] it Address [address] [place] [phone] Care Team Providers Care Revenue Specialist Name Role Phone Nick White MD Primary Care Provider [phone] Social History Tobacco Use Types Packs/Day Years [...] age to complete this topic Care Teams Revenue Specialist Relationship Specialty Start Date End Date Nick White MD [address] [place] [address] Dr Urbano MA PCP - General Internal Medicine 01/16/22
== END 2025-07-16 13:59 | disposition home or self-care (01) ==
LOC: HO.HPODS 13:41
PROVIDERS: PCP Internal Medicine; Visit Provider Student in an Organized Health Care Education/Training Program
DX: M25.572 Pain in left ankle and joints of left foot (principal); G89.29 Other chronic pain; M25.373 Other instability, unspecified ankle; M19.072 Primary osteoarthritis, left ankle and foot; M77.52 Other enthesopathy of left foot and ankle; S93.492A Sprain of other ligament of left ankle, initial encounter
CPT/HCPCS: 99214

== ENCOUNTER 2025-07-31 13:44 | Outpatient (AMB) | payer BC, SELFPAY ==
--- NOTE | 2025-07-31 13:46 | MHC.OFFVIS ---
Intake Visit Reasons: [employer]-Unilateral primary osteoarthritis, right knee Intake Note: July is a 65 year old female who presents with complaints of progressively worsening right knee pain. She describes her pain as sharp and severe in nature. Her pain has gotten worse over the last few years in spite of continued non operative treatments. She has had cortisone injections in the past which gave her no relief. She has not had a viscosupplementation injection. She has failed the last 3 months of conservative treatment which has included Tylenol, meloxicam, a home exercise program and physical therapy exercises. At this point her right knee pain is interfering with her activities of daily living and her ability to sleep well through the night. The patient wishes to hold off on surgery if at all possible. Allergies codeine (Codeine) Allergy (Mild, Verified 07/31/25 13:52) HIVES Medication List - Last Reconciled 07/31/25 by Masood Beltran MD atorvastatin 20 mg PO DAILY fluticasone propionate 50 mcg/actuation 2 sprays intranasal DAILY meloxicam 7.5 mg PO DAILY sertraline 25 mg PO DAILY [facility] Medical History Left ankle sprain Chronic instability of ankle Arthritis of left ankle Left ankle pain Osteoarthritis of right knee Family History Mother No problems noted. Father No problems noted. Social History Housing: House Alcohol intake: current Alcohol intake frequency: holidays/special occasions only Patient Tobacco Use Status: Former Tobacco user e-Cigarette/Vaping Use: Former Use service: No Current occupational status: retired Cognitive needs: No Hearing needs: No Vision needs: Yes (rx glasses) Physical Exam Const Other: Well-nourished well-developed very friendly female awake alert and oriented x3 in no acute distress Extrem Other: Bilateral lower extremity examination shows good capillary refill, no skin lesions noted, normal sensation light touch Right knee examination shows a minimal effusion, palpable crepitus with range of motion, pain with range of motion, no instability Results Reviewed Results Reviewed: X-rays of the patient's right knee show moderate diffuse joint space narrowing, subchondral sclerosis, no acute bony abnormalities Assessment & Plan Assessment & Plan (1) Osteoarthritis of right knee: Code(s): M17.11 - Unilateral primary osteoarthritis, right knee Category: Medical Plan Ms. Jaimes presents with progressively worsening right knee pain due to osteoarthritis. I had a lengthy discussion with the patient regarding the treatment options. She wishes to hold off on surgery if at all possible. I agree with this plan. I will see if the patient's insurance company will cover a viscosupplementation injection, such as Durolane, for her right knee. I will see her back once the injection is approved. Feel free to call me at any time should questions regarding her orthopedic management arise. Thank you very much for asking me to see this very friendly patient. I spent 20 minutes in reviewing the patient's records and imaging studies, seeing the patient and documenting in the medical record. Coding Level of Care Code New Pt Level 3 (75558) Complex EM visit Add On G2211 Diagnoses Osteoarthritis of right knee M17.11
== END 2025-07-31 14:05 | disposition home or self-care (01) ==
LOC: HO.HOS 13:45
PROVIDERS: Visit Provider Orthopaedic Surgery
DX: M17.11 Unilateral primary osteoarthritis, right knee (principal)
CPT/HCPCS: 99203